=== PATIENT | male | born 1980 ===

== ENCOUNTER 2017-03-10 21:25 | Emergency (ER) | payer MEDICAID ==
[2017-03-10 21:55] VITALS: BP 131/96; PULSE 78; RESP 18; TEMP 99; O2SAT 99
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
== END 2017-03-10 22:49 | disposition home or self-care (01) ==
LOC: H.ER 21:25 → EDSEX 21:25 → H.ER 22:49
DX: S09.90XA Unspecified injury of head, initial encounter (principal); S00.03XA Contusion of scalp, initial encounter; W22.8XXA Striking against or struck by other objects, initial encounter; Y92.328 Other athletic field as the place of occurrence of the external cause